=== PATIENT | male | born 1945 | race Caucasian/White ===

== ENCOUNTER 2016-11-30 07:35 | Observation (INO) ==
[2016-11-30] MEDS ORDERED: ASPIRIN CHEW 81 MG TABLET PO STA (08:05)
--- NOTE | 2016-11-30 08:13 | EKG Report ---
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
[2016-11-30] MEDS ORDERED: ASPIRIN CHEW 81 MG TABLET PO ONE ×2 (08:22)
[2016-11-30 08:24] LABS: Basophils # 0.1 10*3/uL (0.0-0.2); Basophils % 0.8 % (0.0-0.8); Eosinophils # 0.1 10*3/uL (0.0-0.87); Eosinophils % 1.1 % (0.00-10.9); Immature Granulocytes % 0.2 %; Immature Granulocytes Absolute 0.01 #; Lymphocytes # 4.6 10*3/uL (1.4-4.0); Mean Corpuscular HGB Conc 34.9 GM/DL (32-36); Mean Corpuscular Hemoglobin 31 PG (27-34); Mean Corpuscular Volume 90.1 FL (87-102); Mean Platelet Volume 10.3 FL (9.6-12.0); Monocytes # 0.5 10*3/uL (0.11-0.8); Monocytes % 7.5 % (1.7-12.7); Neutrophils # 1.3 10*3/uL (1.4-7.4); Neutrophils % 19.4 % (38.7-73.9); Platelet Count 108 T/CUMM (130-400); Red Blood Count 4.77 MC/CUMM (3.8-5.5); Red Cell Distribution Width 13.2 % (9.3-17.3); White Blood Count 6.4 T/CUMM (4-12)
--- NOTE | 2016-11-30 08:26 | XRay Report ---
XR chest 2V Date: 11/30/2016 8:05 AM History: Shortness of breath Comparison: 04/25/2015 Technique: PA and lateral chest Findings: The heart is small and compressed by the over expanded lungs. The lungs and mediastinum are stable in appearance. Prior anterior cervical fusion with degenerative changes. Prior cholecystectomy. Impression: COPD with no acute parenchymal findings. Prior anterior cervical fusion and cholecystectomy. PROCEDURE INTERPRETED AT [facility] DEPARTMENT OF RADIOLOGY Final Report Signed by: Dr. Aicha Leslie
[2016-11-30 08:49] LABS: Alanine Aminotransferase 57 U/L (16-61); Albumin 3.3 G/DL (3.4-5.0); Alkaline Phosphatase 218 U/L (45-117); Aspartate Amino Transferase 56 U/L (0-37); Blood Urea Nitrogen 20 MG/DL (7-18); Calcium 8.7 MG/DL (8.5-10.1); Glucose 197 MG/DL (74-106); Osmolality,Calculated 284.5 MOS/KG (273-304); Potassium 3.4 MMOL/L (3.5-5.1); Sodium 139 MMOL/L (136-145); Total Protein 6.6 G/DL (6.4-8.3); Troponin I Only < 0.015 NG/ML (0.00-0.045)
[2016-11-30 09:08] LABS: Band Neutrophils 3 % (0-10); Hypochromasia 1+; Lymphocytes 27 % (20-55); Microcytosis 1+; Platelet Estimate Decreased; Segmented Neutrophils 61 % (50-85); Total Cells Counted 100
--- NOTE | 2016-11-30 09:38 | CT Report ---
Exam: CT chest with contrast, PE study Date: 11/30/2016 Comparison: 04/25/2015 Reason: Chest pain, shortness of breath Technique: Axial images of the chest were obtained after administration of 100 cc of IV Omnipaque 350 intravenous contrast. Coronal reformatted images were also acquired. The study was performed per pulmonary embolism protocol. Total DLP: 1388.80. Findings: There is no evidence of pulmonary embolism through the segmental pulmonary arteries. The heart is normal in size with cardiac fat pads. Minimal coronary artery calcifications are noted. Limited contrast in the thoracic aorta which is stable in size. No chest lymphadenopathy is identified. Prior cholecystectomy. Limited evaluation of the spleen which appears larger in size. Limited evaluation of the upper abdomen on the scans. CT of the abdomen and pelvis reported separately. Degenerative changes are noted. The lungs are overexpanded with chronic scarring with minimally progressive atelectasis. No pleural effusion. Impression: No evidence of pulmonary embolism. Minimal coronary artery calcifications. Prior cholecystectomy with progressive splenomegaly. CT of abdomen and pelvis reported separately. The lungs are minimally over expanded which can be seen with COPD or possible reactive airway disease with minimally progressive atelectasis. This CT exam was performed using one or more the following dose reduction techniques: Automated exposure control, adjustment of the MA and/or KV according to patient size, or use of iterative reconstruction technique. PROCEDURE INTERPRETED AT [facility] DEPARTMENT OF RADIOLOGY Final Report Signed by: Dr. Aicha Leslie
--- NOTE | 2016-11-30 09:43 | CT Report ---
Referring physician: Fran Soto EXAM: CT abdomen and pelvis with contrast DATE: November 30, 2016 COMPARISON: CT chest PE study November 30, 2016, CT abdomen and pelvis November 22, 2012 REASON: Elevated bilirubin, upper abdominal/chest pain TECHNIQUE: Axial images of the abdomen and pelvis were obtained after administration of 100 cc of Omnipaque 350 IV contrast. Coronal and sagittal reformatted images were also provided. FINDINGS: Lower thorax: Please see the CT chest PE study performed on the same day for details. ABDOMEN: Liver: Unremarkable. Gallbladder and bile ducts: The patient is status post cholecystectomy. No biliary duct dilatation is seen. Pancreas: There is mild fat stranding at near the pancreatic tail, lower pole of the left kidney and inferomedial margin of the spleen. This was present on the previous study and may reflect scarring. However, please correlate with lipase levels to exclude acute pancreatitis. Spleen: There is splenomegaly with the spleen measuring 19 cm in AP dimension. This has developed since the previous study. Adrenals: Unremarkable. Kidneys and ureters: No hydronephrosis is present. There is probable cortical scarring at the lower pole of the left kidney, which appears stable. There is also a a probable 0.8 cm cyst at the lower pole of the left kidney and a 0.4 cm nonobstructing left renal calculus. The ureters are unremarkable as visualized. PELVIS: Bladder: The bladder is poorly distended and difficult to evaluate. Reproductive: The prostate is mildly enlarged but appears stable. The seminal vesicles are unremarkable. ABDOMEN AND PELVIS: Bowel: There is no evidence of bowel obstruction or inflammation. There is moderate stool within the colon. Appendix: The appendix is unremarkable. Vasculature: The abdominal aorta is normal in size. Peritoneum/retroperitoneum: No free air is identified. There is minimal free fluid within the pelvis. Lymph nodes: No suspicious adenopathy is seen. Abdominal/pelvic wall: There is a minimal fat-containing umbilical hernia. Bones: There is degenerative change at the spine with disc space narrowing and endplate degenerative change at L4-L5. No acute osseous process is seen. IMPRESSION: 1. Interval development of splenomegaly. 2. Minimal free fluid within the pelvis. 3. There is mild fat stranding near the pancreatic tail, lower pole of the left kidney and inferomedial margin of the spleen. This was present on the prior study and may reflect scarring. However, please correlate with lipase levels to exclude mild pancreatitis. 4. Scarring at the lower pole of the left kidney. There is also a small left renal cyst and small nonobstructing left renal calculus. The CT exam was performed using one or more of the following dose reduction techniques: Automated exposure control and adjustment of the mA and/or kV according to patient size. PROCEDURE INTERPRETED AT [facility] DEPARTMENT OF RADIOLOGY Final Report Signed by: Dr. Román Dash
--- NOTE | 2016-11-30 10:18 | Emergency Department Note ---
Александр Herrera Brooke, am scribing for, and in the presence of, Fran Soto MD 08:21. Charles Herrera Hans, MD, personally performed the services described in this documentation, ascribed by Cyndy Fountain in my presence, and it is both accurate and complete . Arrival - Arrival Chief Complaint: Chest Pain Stated Complaint: heart ED Nursing Triage Note: Pt c/o Chest pain, SOB, nausea, and right wrist/hand numbness since Saturday. Mode of Arrival: Ambulatory Limitations: No Limitations Source: Patient, RN Notes Reviewed Time Seen by Provider: 11/30/16 07:50 - History of Present Illness HPI Narrative: Patient is a 71 year old male who presents to the ED with c/o chest pain that started Saturday. He describes the pain as constant and as pressure or dull. His chest is not tender to palpation. He says the pain is not currently "bad." He denies any radiation of the pain but says his right hand, around the thumb, is numb. Patient says the numbness started this morning and he does not have a history of carpal tunnel syndrome. Patient says he has had nausea, lightheadedness, and shortness of breath. He denies having any diaphoresis. Patient says he has "went down" a lot in the past two weeks. He says he has been laying around a lot for the past "two or three days" because of the pain. He says he has not been under any extra stress. He has not eaten in the past "two or three days" and says he does not have an appetite. Patient had a pulmonary embolism in 2014 and says the symptoms that he had then, are similar to todays symptoms. 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 He says he did have some superficial clots to the right leg. Patient says the TIA happened a couple of years ago and Dr. Kraus did a full work up on him. He does not have a FHx of heart problems. He is not a smoker. Dr. Torres is his Primary Care Provider. Onset (ago): day(s) (5) Allergies/Adverse Reactions: Allergies Allergy/AdvReac Type Severity Reaction Status Date / Time No Known Allergies Allergy Unverified 04/25/15 09:26 Home Medications: Home Medications Medication Instructions Recorded Confirmed Type Metformin HCl 1,000 mg PO BID 04/25/15 11/30/16 History Omeprazole Magnesium [Prilosec Otc] 20 mg PO DAILY 04/25/15 11/30/16 History Clopidogrel [Plavix] 75 mg PO DAILY #30 tablet 04/26/15 11/30/16 Rx Alfuzosin [Uroxatral] 10 mg PO DAILY 11/30/16 11/30/16 History Naproxen [Naproxen Tab] 250 mg PO DAILY PRN 11/30/16 11/30/16 History Review of System - Review of System 12 point system: reviewed and no additional remarkable complaints except as stated - Review of System Constitutional: Present: other (no appetite). Absent: diaphoresis, fever Respiratory: Absent: respiratory distress Cardiovascular: Present: chest pain Gastrointestinal: Present: nausea Skin: Absent: rash Neurological: Present: numbness (Right hand around thumb) Medical,Surgical,& Family Hx - Medical History Endocrine: History of: Diabetes Mellitus (NIDDM) Respiratory: History of: Pulmonary Embolism (summer 2014) Renal: Comment Only: Renal Problems (removed part of kidney r/t tumor) Gastrointestinal: History of: GERD - Surgical History Thoracic Surgeries: Surgical HX of;: Kidney (Renal Surgery) (removed part of kidney r/t tumor) Abdominal Surgeries: Surgical HX of: Cholecystectomy Reproductive Surgeries: Patient denies;: Genitourinary Surgery - Family History Family History: Reports;: Family Cancer (mother) Denies;: Family Anesthesia Reaction, Family Diabetes, Family Heart Disease, Family Hypertension, Family Stroke - Social History Smoking Status: Never smoker Exam Vital Signs: Vital Signs Temperature 97.4 F L 11/30/16 07:41 Pulse Rate 96 H 11/30/16 09:00 Respiratory Rate 18 11/30/16 09:00 Blood Pressure 110/64 11/30/16 09:00 O2 Sat by Pulse Oximetry 96 11/30/16 09:00 - General General appearance: alert, in no apparent distress - Head Head exam: Present: atraumatic, normocephalic - Eye Eye exam: Present: normal appearance, PERRL, EOMI - ENT ENT exam: Present: normal exam - Neck Neck exam: Present: normal inspection - Chest Chest inspection: Present: normal inspection, symmetric chest wall rise - Respiratory Respiratory exam: Present: normal lung sounds bilaterally - Cardiovascular Cardiovascular exam: Present: regular rate, normal rhythm, normal heart sounds - Abdominal Exam Abdominal exam: Present: soft. Absent: distention, tenderness - Extremities Exam Extremities exam: Present: normal inspection - Back Exam Back exam: Present: normal inspection - Neurological Exam Neurological exam: Present: alert, oriented X3 - Psychiatric Psychiatric exam: Present: normal affect, normal mood - Skin Skin exam: Present: warm, dry, intact, normal color Course Course Narrative: This patient was evaluated in the ER and his workup was essentially negative for any acute problems but he did have some ST segment depressions in his septal leads and his troponin was negative. His CT chest PE protocol showed no PE and his CT of abdomen and pelvis showed some splenomegaly and some inflammatory changes in the tail the pancreas. His bilirubin was slightly elevated. Because of his chest pain and minimal EKG changes he was discussed with his primary care physician who agreed to admit him to telemetry to trend his cardiac enzymes to rule out coronary artery syndrome and obtain cardiology evaluation. Results - Labs CBC & BMP: 11/30/16 07:53 11/30/16 07:53 Lab Results: I have reviewed the patients labs Labs: Laboratory Tests 11/30/16 07:53 WBC 6.4 RBC 4.77 Hgb 15.0 Hct 43.0 MCV 90.1 MCH 31 MCHC 34.9 RDW 13.2 Plt Count 108 L MPV 10.3 Neut % (Auto) 19.4 L Lymph % (Auto) 71.0 H Canadian % (Auto) 7.5 Eos % (Auto) 1.1 Baso % (Auto) 0.8 Neut # (Auto) 1.3 L Lymph # (Auto) 4.6 H Canadian # (Auto) 0.5 Eos # (Auto) 0.1 Baso # (Auto) 0.1 Immature Gran % 0.2 Nucleated RBC % 0.0 Immature Gran # 0.01 Nucleated RBCs # 0.00 Laboratory Tests 11/30/16 07:53 Sodium 139 Potassium 3.4 L Chloride 103 Carbon Dioxide 26 Anion Gap 13.4 BUN 20 H Creatinine 0.90 GFR Calculation 112 BUN/Creatinine Ratio 22.00 H Glucose 197 H Calculated Osmolality 284.5 Calcium 8.7 Total Bilirubin 2.60 H AST 56 H ALT 57 Alkaline Phosphatase 218 H Total Creatine Kinase 38 L CK-MB (CK-2) < 1.0 Troponin I < 0.015 Total Protein 6.6 Albumin 3.3 L Globulin 3.3 Albumin/Globulin Ratio 1.0 L Lipase 275.0 Laboratory Tests 11/30/16 07:53 Total Counted 100 Segmented Neutrophils 61 Band Neutrophils 3 Lymphocytes 27 Monocytes 9 Platelet Estimate Decreased Hypochromasia 1+ Microcytosis 1+ - Diagnostic Findings Procedure: Chest x-ray: report reviewed by me (COPD with no acute parenchymal findings. Prior anterior cervical fusion and cholecystectomy.), CT Abdomen and Pelvis: report reviewed by me (1. Interval development of splenomegaly. 2. Minimal free fluid within the pelvis. 3. There is mild fat stranding near the pancreatic tail, lower pole of the left kidney and inferomedial margin of the spleen. This was present on the prior study and may reflect scarring. However, please correlate with lipase levels to exclude mild pancreatitis. 4. Scarring at the lower pole of the left kidney. There is also a small left renal cyst and small nonobstructing left renal calculus.), CT - chest: report reviewed by me ( No evidence of pulmonary embolism. Minimal coronary artery calcifications. Prior cholecystecomy with progressive splenomegaly. CT of abdomen and pelvis reported separately. The lungs are minimally over expanded which can be seen with COPD or possible reactive airway disease with minimally progressive atelectasis.) Disposition Clinical Impression: Chest pain Case discussed with: patient Disposition: Still a Patient Condition: Stable Instructions: Chest Pain (ED) Time of Disposition: 10:18
[2016-11-30] MEDS ORDERED: GLUCAGON 1 MG VIAL IM PRN (11:45)
[2016-11-30] MEDS ORDERED: MAGNESIUM SULF RIDER 2 GM in PREMIX 1 EACH IV PRN (11:45)
[2016-11-30] MEDS ORDERED: PROMETHAZINE 25 MG TABLET PO PRN (11:45)
[2016-11-30] MEDS ORDERED: MAGNESIUM SULF RIDER 4 GM in PREMIX 1 EACH IV PRN (11:45)
[2016-11-30] MEDS ORDERED: DEXTROSE 50% 25 GM/50 ML VIAL IV PRN (11:45)
[2016-11-30] MEDS ORDERED: ONDANSETRON 4 MG/2 ML VIAL IV PRN (11:45)
[2016-11-30] MEDS ORDERED: MORPHINE 2 MG/1 ML SYRINGE IV PRN (11:45)
--- NOTE | 2016-11-30 14:10 | Family Practice History&Phys ---
Assessment and Plan (1) Chest pain Status: Acute Assessment and plan: Patient states that he has had a significant tightness sensation in his epigastric region chest intermittently over the last 2 weeks. At times is very significant and associated with nausea no vomiting. Also had dyspnea. Patient is a significant change in his endurance now has dyspnea with minimal activity. Current Visit: Yes (2) Dyspnea with exertion Status: Acute Assessment and plan: There has been a significant change in the last 2 weeks. Patient states that he normally does a lot of physical activity in his daily schedule. Presently not able to minimal activity without dyspnea. Current Visit: Yes (3) Loss of endurance Status: Acute Assessment and plan: Patient states that he has had a significant change in his endurance. States he does a lot of physical activity on a daily basis is now only able to do minimal activity without severe weakness and dyspnea Current Visit: Yes (4) previous pulmonary embolus Status: Chronic Assessment and plan: Stable on present medications. Patient had a CT angiogram done in the room which revealed no acute changes. Current Visit: No (5) History of deep vein thrombosis Status: Chronic Assessment and plan: Stable at present Current Visit: Yes (6) Previous TIA Status: Chronic Assessment and plan: Stable on present medications Current Visit: Yes (7) type 2 diabetes mellitus Status: Chronic Assessment and plan: Stable on present medications. Will start on sliding scale Current Visit: No (8) Gastroesophageal reflux Status: Chronic Assessment and plan: Patient states she has occasional reflux symptoms but generally is stable on Prilosec daily. Denies any change in his stools. Current Visit: Yes (9) History of renal calculi Status: Chronic Assessment and plan: Stable at present Current Visit: Yes (10) Benign prostatic hypertrophy Status: Chronic Assessment and plan: Stable on present medications Current Visit: Yes History of Present Illness Chief complaint: Dyspnea with exertion and chest pain History of present illness: Mr. Joseph is a 71 year old male e: Patient is a 71 year old male who presents to the ED with c/o chest pain that started Saturday. He describes the pain as constant and as pressure or dull. His chest is not tender to palpation. He says the pain is not currently "bad." He denies any radiation of the pain but says his right hand, around the thumb, is numb. Patient says the numbness started this morning and he does not have a history of carpal tunnel syndrome. Patient says he has had nausea, lightheadedness, and shortness of breath. He denies having any diaphoresis. Patient says he has "went down" a lot in the past two weeks. He says he has been laying around a lot for the past "two or three days" because of the pain. He says he has not been under any extra stress. He has not eaten in the past "two or three days" and says he does not have an appetite. Patient had a pulmonary embolism in 2014 and says the symptoms that he had then, are similar to todays symptoms. 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 He says he did have some superficial clots to the right leg. Patient says the TIA happened a couple of years ago and Dr. Kraus did a full work up on him. He does not have a FHx of heart problems. Patient further relates that he has had a significant change in his endurance and energy in the last 2 weeks. States that he has dyspnea with minimal activity at present. 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 States he has not been able to do anything in the last several days. In view of degree of symptoms will admit for further evaluation and therapy. Home Medications Medication Instructions Recorded Confirmed Type Metformin HCl 1,000 mg PO BID 04/25/15 11/30/16 History Omeprazole Magnesium [Prilosec Otc] 20 mg PO DAILY 04/25/15 11/30/16 History Clopidogrel [Plavix] 75 mg PO DAILY #30 tablet 04/26/15 11/30/16 Rx Alfuzosin [Uroxatral] 10 mg PO DAILY 11/30/16 11/30/16 History Naproxen [Naproxen Tab] 250 mg PO DAILY PRN 11/30/16 11/30/16 History Allergies Allergy/AdvReac Type Severity Reaction Status Date / Time No Known Allergies Allergy Unverified 04/25/15 09:26 Medical,Surgical,& Family Hx - Medical History Neurology: History of: TIA Endocrine: History of: Diabetes Mellitus (NIDDM) Respiratory: History of: Pulmonary Embolism (summer 2014) Renal: Comment Only: Renal Problems (, Patient has history of previous renal calculi.) Genitourinary: History of: Prostate Problems (History of benign prostatic hypertrophy) Gastrointestinal: History of: GERD Musculoskeletal: History of: Degenerative Disk Disease Hematology: History of: Clotting Problems (Patient's had previous deep vein thrombosis and pulmonary embolus) - Surgical History Thoracic Surgeries: Surgical HX of;: Kidney (Renal Surgery) (removed part of kidney r/t tumor) Abdominal Surgeries: Surgical HX of: Cholecystectomy Reproductive Surgeries: Patient denies;: Genitourinary Surgery Orthopedic Surgeries: Surgical HX of;: Spinal Surgery (History of previous cervical fusion) - Family History Family History: Reports;: Family Cancer (mother) Denies;: Family Anesthesia Reaction, Family Diabetes, Family Heart Disease, Family Hypertension, Family Stroke - Social History Smoking Status: Never smoker Frequency of Alcohol Use: None Type of Drug Use: None Marital Status: Lives With:: Spouse Functional capacity: independent ambulation Exam - Constitutional Vitals: Period Temp Pulse Resp BP Sys/Quigley Pulse Ox Last 24 Hr 97.4 F-97.9 F 72-122 16-20 110-139/52-93 94-100 General appearance: no acute distress - Head Head exam: Present: normal inspection - ENT ENT exam: Present: normal exam - Neck Neck exam: Present: normal inspection. Absent: lymphadenopathy - Respiratory Respiratory exam: Present: clear to auscultation bilaterally - Cardiovascular Cardiovascular exam: Present: regular rate and rhythm - GI/Abdominal GI/Abdominal exam: Present: normal bowel sounds, soft - Extremities Exam Extremities exam: Present: normal inspection - Back Exam Back exam: Present: normal inspection - Neurological Exam Neurological exam: Present: alert, oriented X3 - Psychiatric Psychiatric exam: Present: normal affect, normal mood - Skin Skin exam: Present: normal color Results - Labs CBC & BMP: 11/30/16 07:53 11/30/16 07:53
[2016-11-30] MEDS: ALFUZOSIN 10 MG TABLET PO SCH (14:39)
[2016-11-30] MEDS: PANTOPRAZOLE 40 MG VIAL IV SCH (14:39)
--- NOTE | 2016-11-30 15:35 | Cardiology Consult Note ---
<Sridevi Ruiz - Last Filed: 11/30/16 16:02> Assessment and Plan - Time spent with patient Time spent with patient: Greater than 30 minutes (1) Chest pain Status: Acute Assessment and plan: SEE PLAN OF CARE LISTED BELOW. Current Visit: Yes (2) Dyspnea with exertion Status: Acute Assessment and plan: SEE PLAN OF CARE LISTED BELOW. Current Visit: Yes (3) Loss of endurance Status: Acute Assessment and plan: SEE PLAN OF CARE LISTED BELOW. Current Visit: Yes (4) Benign prostatic hypertrophy Status: Chronic Assessment and plan: SEE PLAN OF CARE LISTED BELOW. Current Visit: Yes (5) Gastroesophageal reflux Status: Chronic Assessment and plan: SEE PLAN OF CARE LISTED BELOW. Current Visit: Yes (6) History of deep vein thrombosis Status: Chronic Assessment and plan: SEE PLAN OF CARE LISTED BELOW. Current Visit: Yes (7) History of renal calculi Status: Chronic Assessment and plan: SEE PLAN OF CARE LISTED BELOW. Current Visit: Yes (8) Previous TIA Status: Chronic Assessment and plan: SEE PLAN OF CARE LISTED BELOW. Current Visit: Yes (9) previous pulmonary embolus Status: Chronic Assessment and plan: SEE PLAN OF CARE LISTED BELOW. Current Visit: No (10) type 2 diabetes mellitus Status: Chronic Assessment and plan: SEE PLAN OF CARE LISTED BELOW. Current Visit: No (11) Abdominal pain Status: Acute Assessment and plan: SEE PLAN OF CARE LISTED BELOW. Current Visit: Yes (12) Elevated bilirubin Status: Acute Assessment and plan: SEE PLAN OF CARE LISTED BELOW. Current Visit: Yes (13) Elevated AST (SGOT) Status: Acute Assessment and plan: SEE PLAN OF CARE LISTED BELOW. Current Visit: Yes (14) Hypokalemia Status: Acute Assessment and plan: SEE PLAN OF CARE LISTED BELOW. Current Visit: Yes (15) Thrombocytopenia Status: Acute Assessment and plan: SEE PLAN OF CARE LISTED BELOW. Current Visit: Yes History of Present Illness - Data of Consult Patient: new to practice Consult date: 11/30/16 Requesting Physician: Aaron Torres Primary care physician: Gianni Palma - Consult Narrative Reason for consult: Chest pain History of present illness: Put In Beat Adjuster: Patient reports that he saw Dr. williamson in the hospital 2 years ago, has never followed up in clinic. Mr. Joseph is a 71 year old male without known history of coronary artery disease , not routinely followed by cardiology. Patient presented to the emergency department with complaints of chest pain. Patient has cardiac risk factors significant for diabetes and advanced age. Patient reports that he is a lifetime non-smoker and has no family history of coronary artery disease. 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 Patient reports that he had a normal stress test in 2015. He also had an echocardiogram in 2015 which revealed ejection fraction of 60%. Grade 2 diastolic dysfunction. Pulmonary artery pressure 35-40 mmHg. Patient reports that he is normally a very active person. [place] and has multiple duties to perform daily. However, one month ago he began tiring out quicker and no longer having the energy that he used to. 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 He confirms dyspnea on exertion, easy fatigability and a significant change in his endurance. 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 This has progressively worsened over the last month. He reports associated nausea without vomiting, abdominal pain, shortness of breath, loss of appetite and lightheadedness. On Saturday, he developed midsternal chest pain. He describes his pain as a pressure or dull type pain. Nonradiating. Rates his pain a 4 out of 5. This is been consistent since Saturday afternoon, waxing and waning in intensity. Associated with shortness of breath and nausea. Denies diaphoresis. He tells me that walking or exertion has no effect on his chest discomfort. 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 However, I could not reproduce his chest pain on exam. He is unable to identify any alleviating factors. This morning, he reports having minimal chest pain. However, he felt that it was necessary to be further evaluated as his other symptoms continue to progress. He does report that his chest pain feels exactly like it did when he had a pulmonary embolism in 2014. Chest CT this admission does not reveal any evidence of pulmonary embolism. Patient has been admitted under family medicine's service and housed on the telemetry floor. Cardiology has been consulted to further evaluate patient's chest discomfort. Patient was seen and examined on the telemetry unit. He is currently is without chest pain, heaviness and tightness. EKG only reveals nonspecific ST and T-wave abnormality. Troponin has been negative 2. Total bilirubin is noted to be 2.[address] of abdomen and pelvis reveal interval development of splenomegaly, minimal free fluid within the pelvis and small left renal cyst and small nonobstructing left renal calculus. Chest CT did not reveal any evidence of pulmonary embolism. At this point, we will continue to cycle cardiac biomarkers and EKG in order to rule out myocardial infarction. Baby aspirin has been added to medication regimen. Upon admission to emergency department, he was noted to be tachycardic with heart rates of 122. I will add a low-dose beta-valeria. I will discuss with Dr. Ramos and await his further recommendations regarding the need for further cardiac workup. ASSESSMENT AND PLAN : 1. CHEST PAIN - Patient has atypical chest pain without exertional component. Troponin has been negative 2 and EKG reveals nonspecific [address] and T-wave abnormality. Patient had a normal cardiac stress test approximately 2 years ago. I do not feel that this is ACS due to the fact that patient has normal cardiac biomarkers with ongoing chest discomfort since Saturday. At this point, I will add baby aspirin and continue to cycle cardiac biomarkers and EKG. I will discuss with Dr. Ramos and await his further recommendations regarding the need for further cardiac workup. Lipid panel has been added to a.m. labs. 2. DYSPNEA ON EXERTION - Patient reports dyspnea on exertion for the past 1 month. We will order an echocardiogram. These results will be reviewed and further recommendations will be made at that time. Certainly, this could be secondary to underlying coronary artery disease. At this time, we will continue to cycle cardiac biomarkers and EKGs in order to rule out myocardial infarction. Will discuss with Dr. Ramos and await his further recommendations regarding need for further cardiac workup. 3. LOSS OF ENDURANCE - TSH was checked which was within normal limits. Will order echocardiogram. 4. ELEVATED BILIRUBIN - Defer further workup of this to attending. GI consultation may need to be considered. 5. ELEVATED AST - Defer workup of this to attending. GI consultation may be considered. 6. HYPOKALEMIA - Potassium replacement protocol. 7. THROMBOCYTOPENIA - Defer further workup of this to attending. Monitor with daily CBC. 8. DIABETES - Defer management of this to attending. 9. HISTORY OF PE - Continue Plavix. Chest CT was not suggestive of acute pulmonary embolism. 10. HISTORY OF TIA - Stable at present. Continue Plavix. 11. GERD - Continue PPI. Patient reports that his GERD is well controlled with Prilosec at home. 12. HISTORY OF RENAL CALCULI - Stable at present. Continue current plan of care. 13. BPH - Stable at present. Continue current plan of care. 14. HISTORY OF DVT - Stable at present. Continue current plan of care. 15. SINUS TACHYCARDIA - Upon arrival to the emergency department, patient was noted to be in sinus tachycardia with heart rates in the 120s. I will add low- dose beta-valeria at this time as this may be contributing to some of patient's symptomology. CC: Aaron Torres, DO - Home Medications and Allergies Home Medications: Home Medications Medication Instructions Recorded Confirmed Type Metformin HCl 1,000 mg PO BID 04/25/15 11/30/16 History Omeprazole Magnesium [Prilosec Otc] 20 mg PO DAILY 04/25/15 11/30/16 History Clopidogrel [Plavix] 75 mg PO DAILY #30 tablet 04/26/15 11/30/16 Rx Alfuzosin [Uroxatral] 10 mg PO DAILY 11/30/16 11/30/16 History Naproxen [Naproxen Tab] 250 mg PO DAILY PRN 11/30/16 11/30/16 History Allergies/Adverse Reactions: Allergies Allergy/AdvReac Type Severity Reaction Status Date / Time No Known Allergies Allergy Unverified 04/25/15 09:26 - Constitutional Constitutional: Present: fatigue, lethargy, malaise, weakness, other (Loss of appetite). Absent: chills, fever(s), frequent falls - Cardiovascular Cardiovascular: Present: as per HPI, chest pain at rest, dyspnea, dyspnea on exertion, lightheadedness. Absent: claudication, diaphoresis, edema, radiating jaw, neck or arm pain, orthopnea, palpitations, PND - Respiratory Respiratory: Present: dyspnea, dyspnea on exertion. Absent: cough, hemoptysis, wheezing, snoring, pain on inspiration, change in phlegm color - Gastrointestinal Gastrointestinal: Present: abdominal pain, bloating, cramping, early satiety, nausea. Absent: constipation, hematemesis, hematochezia, loose stools, melena, vomiting - Genitourinary Genitourinary: Present: flank pain - Neurological Neurological: Present: dizziness, numbness (Right thumb). Absent: abnormal gait , abnormal speech, behavioral changes, frequent falls, headache(s), syncope Medical,Surgical,& Family Hx - Medical History Neurology: History of: TIA Endocrine: History of: Diabetes Mellitus (NIDDM) Respiratory: History of: Pulmonary Embolism (summer 2014) Renal: Comment Only: Renal Problems (, Patient has history of previous renal calculi.) Genitourinary: History of: Prostate Problems (History of benign prostatic hypertrophy) Gastrointestinal: History of: GERD Musculoskeletal: History of: Degenerative Disk Disease Hematology: History of: Clotting Problems (DVT and PE) - Surgical History Thoracic Surgeries: Surgical HX of;: Kidney (Renal Surgery) (removed part of kidney r/t tumor) Abdominal Surgeries: Surgical HX of: Cholecystectomy Reproductive Surgeries: Patient denies;: Genitourinary Surgery Orthopedic Surgeries: Surgical HX of;: Spinal Surgery (History of previous cervical fusion) - Family History Family History: Reports;: Family Cancer (mother) Denies;: Family Anesthesia Reaction, Family Diabetes, Family Heart Disease, Family Hypertension, Family Stroke - Social History Smoking Status: Never smoker Have you smoked in the last 12 months: No Frequency of Alcohol Use: None Type of Drug Use: None Marital Status: Lives With:: Spouse Functional capacity: independent ambulation Physical Examination Vital Signs Temp Pulse Resp BP Pulse Ox 97.4 F L 122 H 20 129/93 98 11/30/16 07:41 11/30/16 07:41 11/30/16 07:41 11/30/16 07:41 11/30/16 07:41 Other: General: Appears well with no apparent distress. Pleasant and cooperative. Appears comfortable. HEENT: PERRL, normocephalic, atraumatic. Mucous membranes moist. No jaundice noted. Conjunctiva moist and clear, sclerae anicteric Neck: No JVD/HJR, no thyromegaly or lymphadenopathy noted. No carotid bruit appreciated Cardiac: Regular rate and rhythm. Lungs: Clear to auscultation without accessory muscle use to assist the respiratory pattern. Not requiring oxygen. Abdomen: Soft, bowel sounds normoactive. Nontender and nondistended. Extremities: No clubbing, cyanosis noted. No edema noted. Upper extremity pulses 2+. Lower extremity pulses 2+. Capillary refill less than 3 seconds. Skin: No unusual lesions or rashes. No skin breakdown appreciated. Neuro: Awake, alert and oriented 3. Moves all extremities well without hemiparesis or paralysis. No essential tremor is appreciated. Result/EKG - Labs CBC & BMP: 11/30/16 07:53 11/30/16 07:53 Lab Results: I have reviewed the past 24 hour labs Labs: Laboratory Results - last 24 hr 11/30/16 11/30/16 11/30/16 07:53 07:53 07:53 WBC 6.4 RBC 4.77 Hgb 15.0 Hct 43.0 MCV 90.1 MCH 31 MCHC 34.9 RDW 13.2 Plt Count 108 L MPV 10.3 Neut % (Auto) 19.4 L Lymph % (Auto) 71.0 H [place] % (Auto) 7.5 Eos % (Auto) 1.1 Baso % (Auto) 0.8 Neut # (Auto) 1.3 L Lymph # (Auto) 4.6 H [place] # (Auto) 0.5 Eos # (Auto) 0.1 Baso # (Auto) 0.1 Total Counted 100 Immature Gran % 0.2 Nucleated RBC % 0.0 Immature Gran # 0.01 Segmented Neutrophils 61 Band Neutrophils 3 Lymphocytes 27 Monocytes 9 Nucleated RBCs # 0.00 Platelet Estimate Decreased Hypochromasia 1+ Microcytosis 1+ Sodium 139 Potassium 3.4 L Chloride 103 Carbon Dioxide 26 Anion Gap 13.4 BUN 20 H Creatinine 0.90 GFR Calculation 112 BUN/Creatinine Ratio 22.00 H Glucose 197 H Calculated Osmolality 284.5 Calcium 8.7 Total Bilirubin 2.60 H AST 56 H ALT 57 Alkaline Phosphatase 218 H Total Creatine Kinase 38 L CK-MB (CK-2) < 1.0 Troponin I < 0.015 Total Protein 6.6 Albumin 3.3 L Globulin 3.3 Albumin/Globulin Ratio 1.0 L Amylase 26 Lipase 275.0 11/30/16 12:22 WBC RBC Hgb Hct MCV MCH MCHC RDW Plt Count MPV Neut % (Auto) Lymph % (Auto) [place] % (Auto) Eos % (Auto) Baso % (Auto) Neut # (Auto) Lymph # (Auto) [place] # (Auto) Eos # (Auto) Baso # (Auto) Total Counted Immature Gran % Nucleated RBC % Immature Gran # Segmented Neutrophils Band Neutrophils Lymphocytes Monocytes Nucleated RBCs # Platelet Estimate Hypochromasia Microcytosis Sodium Potassium Chloride Carbon Dioxide Anion Gap BUN Creatinine GFR Calculation BUN/Creatinine Ratio Glucose Calculated Osmolality Calcium Total Bilirubin AST ALT Alkaline Phosphatase Total Creatine Kinase CK-MB (CK-2) Troponin I < 0.015 Total Protein Albumin Globulin Albumin/Globulin Ratio Amylase Lipase Specialty Discharge - Follow Up or Referrals <Faustino Ramos - Last Filed: 11/30/16 17:00> History of Present Illness - Consult Narrative History of present illness: Mr. Joseph is a 71 year old male CC: Aaron Torres, DO Physical Examination Vital Signs Temp Pulse Resp BP Pulse Ox 97.4 F L 122 H 20 129/93 98 11/30/16 07:41 11/30/16 07:41 11/30/16 07:41 11/30/16 07:41 11/30/16 07:41 Result/EKG - Labs CBC & BMP: 11/30/16 07:53 11/30/16 07:53 Labs: Laboratory Results - last 24 hr 11/30/16 11/30/16 11/30/16 07:53 07:53 07:53 WBC 6.4 RBC 4.77 Hgb 15.0 Hct 43.0 MCV 90.1 MCH 31 MCHC 34.9 RDW 13.2 Plt Count 108 L MPV 10.3 Neut % (Auto) 19.4 L Lymph % (Auto) 71.0 H [place] % (Auto) 7.5 Eos % (Auto) 1.1 Baso % (Auto) 0.8 Neut # (Auto) 1.3 L Lymph # (Auto) 4.6 H [place] # (Auto) 0.5 Eos # (Auto) 0.1 Baso # (Auto) 0.1 Total Counted 100 Immature Gran % 0.2 Nucleated RBC % 0.0 Immature Gran # 0.01 Segmented Neutrophils 61 Band Neutrophils 3 Lymphocytes 27 Monocytes 9 Nucleated RBCs # 0.00 Platelet Estimate Decreased Hypochromasia 1+ Microcytosis 1+ Sodium 139 Potassium 3.4 L Chloride 103 Carbon Dioxide 26 Anion Gap 13.4 BUN 20 H Creatinine 0.90 GFR Calculation 112 BUN/Creatinine Ratio 22.00 H Glucose 197 H Calculated Osmolality 284.5 Calcium 8.7 Total Bilirubin 2.60 H Direct Bilirubin Indirect Bilirubin AST 56 H ALT 57 Alkaline Phosphatase 218 H Total Creatine Kinase 38 L CK-MB (CK-2) < 1.0 Troponin I < 0.015 Total Protein 6.6 Albumin 3.3 L Globulin 3.3 Albumin/Globulin Ratio 1.0 L Amylase 26 Lipase 275.0 11/30/16 11/30/16 12:22 12:22 WBC RBC Hgb Hct MCV MCH MCHC RDW Plt Count MPV Neut % (Auto) Lymph % (Auto) [place] % (Auto) Eos % (Auto) Baso % (Auto) Neut # (Auto) Lymph # (Auto) [place] # (Auto) Eos # (Auto) Baso # (Auto) Total Counted Immature Gran % Nucleated RBC % Immature Gran # Segmented Neutrophils Band Neutrophils Lymphocytes Monocytes Nucleated RBCs # Platelet Estimate Hypochromasia Microcytosis Sodium Potassium Chloride Carbon Dioxide Anion Gap BUN Creatinine GFR Calculation BUN/Creatinine Ratio Glucose Calculated Osmolality Calcium Total Bilirubin 2.40 H Direct Bilirubin 1.60 H Indirect Bilirubin 0.8 AST 52 H ALT 56 Alkaline Phosphatase 225 H Total Creatine Kinase CK-MB (CK-2) Troponin I < 0.015 Total Protein 6.2 L Albumin 3.3 L Globulin Albumin/Globulin Ratio Amylase Lipase
[2016-11-30] MEDS: POTASSIUM CHLORIDE 8 MEQ CAPSULE PO SCH ×2 (16:13→21:41)
[2016-11-30 16:20] LABS: Albumin 3.3 G/DL (3.4-5.0); Bilirubin,Direct 1.6 MG/DL (0.0-0.20); Bilirubin,Indirect 0.8 MG/DL (0.0-1.0); Bilirubin,Total 2.4 MG/DL (0.2-1.0); Total Protein 6.2 G/DL (6.4-8.3)
[2016-11-30 17:12] LABS: Hepatitis A Ab IgM Quant 0.09 Index; Hepatitis A Ab IgM Result Negative (Negative); Hepatitis B Core IgM Result Negative (Negative); Hepatitis B Surface Ag Quant < 0.10 Index; Hepatitis B Surface Ag Result Negative (Negative); Hepatitis C Virus Ab Quant 0.04 Index; Hepatitis C Virus Ab Result Negative (Negative)
--- NOTE | 2016-11-30 17:40 | ECHO Report ---
Uriah Joseph 11/30/2016 Exam Date: 15:57 Referring Physician: Sarah Reese Technologist: CARLOZ Age: 71 Ht (in): 74 Wt (lb): 209 MExam Location: [facility] Gender: Echo [id number]: Chest pain, unspecified, Weakness, Indications:Other fatigue, Dyspnea, unspecified, GERD, NIDDM, HX DVT, HX TIA, Thrombocytopenia, Previous pulmonary emboli BP: 114 / 52 HR: SinusRhythm: Technical Quality: IMPRESSIONS Technically adequate study Normal chamber sizes Normal LV systolic function with ejection fraction estimated 60% without obvious segmental wall motion abnormality Trace to 1+ tricuspid regurgitation with RVSP 36 mmHg plus RAP MEASUREMENTS (Male / Female) Normal Values 2D ECHO LV Diastolic Diameter PLAX 3.9 cm 4.2 - 5.9 / 3.9 - 5.3 cm LV Systolic Diameter PLAX 2.6 cm LV Fractional Shortening PLAX 33.2 % IVS Diastolic Thickness 1.0 cm 0.6 - 1.0 / 0.6 - 0.9 cm LVPW Diastolic Thickness 1.0 cm 0.6 - 1.0 / 0.6 - 0.9 cm RV Internal Dim ED PLAX 3.7 cm Aortic Root Diameter 3.5 cm LA Systolic Diameter LX 3.9 cm 3.0 - 4.0 / 2.7 - 3.8 cm DOPPLER TR Peak Velocity 300.0 cm/s TR Peak Gradient 36.0 mmHg FINDINGS Left Ventricle Normal left ventricular cavity size. Normal left ventricular wall thickness. Left ventricular ejection fraction is estimated at 55-60 %. Right Ventricle The right ventricle is normal in size and function. Right Atrium The right atrium is normal in size. Left Atrium The left atrium is normal in size. Mitral Valve Morphologically normal mitral valve. Trace mitral valve regurgitation. Aortic Valve Morphologically normal aortic valve without significant sclerosis or stenosis. There is no aortic regurgitation. Tricuspid Valve Morphologically normal tricuspid valve. Trace tricuspid valve regurgitation. Tricuspid regurgitation velocities suggest a PAP of 46 mmHg. Pulmonic Valve Morphologically normal pulmonic valve. Trace pulmonary valve regurgitation. Pericardium Normal pericardium without effusion. Aorta Normal ascending aorta dimension. Faustino Ramos (Electronically Signed) 30 November 2016 Final Date: 17:39
[2016-11-30] MEDS: INSULIN LISPRO 100 UNIT/ML SUBCUT SCH ×2 (19:39→21:41)
[2016-11-30] MEDS: CARVEDILOL 3.125 MG TABLET PO SCH (21:41)
[2016-11-30] MEDS: POTASSIUM CHLORIDE 20 MEQ TABLET PO PRN ×2 (21:44→23:32)
[2016-11-30 22:10] LABS: Troponin I Only < 0.015 NG/ML (0.00-0.045)
[2016-12-01 05:02] LABS: Basophils # 0.1 10*3/uL (0.0-0.2); Basophils % 1.1 % (0.0-0.8); Eosinophils # 0.1 10*3/uL (0.0-0.87); Eosinophils % 1.5 % (0.00-10.9); Hemoglobin 14.5 GM/DL (14.0-18.0); Immature Granulocytes % 0.2 %; Immature Granulocytes Absolute 0.01 #; Lymphocytes # 4.7 10*3/uL (1.4-4.0); Lymphocytes % 71.9 % (21.2-54.2); Mean Corpuscular HGB Conc 34.5 GM/DL (32-36); Mean Corpuscular Hemoglobin 31 PG (27-34); Mean Corpuscular Volume 90.9 FL (87-102); Mean Platelet Volume 10.1 FL (9.6-12.0); Monocytes # 0.5 10*3/uL (0.11-0.8); Monocytes % 7.4 % (1.7-12.7); Neutrophils # 1.2 10*3/uL (1.4-7.4); Neutrophils % 17.9 % (38.7-73.9); Platelet Count 100 T/CUMM (130-400); Red Blood Count 4.62 MC/CUMM (3.8-5.5); Red Cell Distribution Width 13.2 % (9.3-17.3); White Blood Count 6.6 T/CUMM (4-12)
[2016-12-01 05:36] LABS: Magnesium 1.8 MG/DL (1.8-2.4); Osmolality,Calculated 285.3 MOS/KG (273-304); Potassium 4.3 MMOL/L (3.5-5.1)
[2016-12-01 05:43] LABS: Troponin I Only < 0.015 NG/ML (0.00-0.045)
[2016-12-01 05:47] LABS: Albumin 2.9 G/DL (3.4-5.0); Bilirubin,Total 2.2 MG/DL (0.2-1.0); Free T4 (Free Thyroxine) 1.52 NG/DL (0.76-1.46); Magnesium 1.7 MG/DL (1.8-2.4); Osmolality,Calculated 281.5 MOS/KG (273-304); Potassium 4.2 MMOL/L (3.5-5.1); Risk Ratio 6.85; Thyroid Stimulating Hormone 3.65 uIU/ml (0.358-3.74); Total Protein 5.9 G/DL (6.4-8.3); VLDL CHOLESTEROL 41.4 MG/DL
[2016-12-01 05:52] LABS: Band Neutrophils 1 % (0-10); Eosinophils 2 % (0-10); Lymphocytes 45 % (20-55); Segmented Neutrophils 42 % (50-85)
[2016-12-01 05:55] LABS: Platelet Estimate Adequate
[2016-12-01 05:56] LABS: Total Cells Counted 100
[2016-12-01 07:02] LABS: Sedimentation Rate-Westergren 5 MM/HR (0-20)
[2016-12-01 07:04] LABS: Amorphous Crystals,Urine Moderate /HPF (Few); Apearance,Urine CLOUDY (Clear); Bacteria,Urine Occasional /HPF (Few); Bilirubin,Urine Small mg/dL (Negative); Blood, Urine Negative (Negative); Calcium Oxalate Crystals,Urine Occasional /HPF (Few); Glucose,Urine (UA) 50 mg/dL (Negative); Ketones,Urine Negative (Negative); Mucus,Urine Moderate /LPF (Occasional); Nitrite,Urine Negative (Negative); Protein,Urine 30 MG/DL; RBC,Urine 2 /HPF (0-4); Squamous Epithelial Cell,Urine Occasional /HPF (0-10); Urine Color Amber (Yellow); Urine Specific Gravity 1.042 (1.001-1.035); WBC,Urine 2 /HPF (0-6)
[2016-12-01] MEDS: INSULIN LISPRO 100 UNIT/ML SUBCUT SCH ×2 (08:40→12:06)
[2016-12-01] MEDS: POTASSIUM CHLORIDE 8 MEQ CAPSULE PO SCH (08:40)
[2016-12-01] MEDS: PANTOPRAZOLE 40 MG VIAL IV SCH (08:40)
[2016-12-01] MEDS: CARVEDILOL 3.125 MG TABLET PO SCH (08:40)
[2016-12-01] MEDS: ALFUZOSIN 10 MG TABLET PO SCH (08:40)
[2016-12-01] MEDS ORDERED: ASPIRIN EC 81 MG TABLET PO SCH (09:00)
[2016-12-01] MEDS ORDERED: CLOPIDOGREL 75 MG TABLET PO SCH (09:00)
--- NOTE | 2016-12-01 09:08 | EKG Report ---
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
[2016-12-01 11:15] LABS: Troponin I Only < 0.015 NG/ML (0.00-0.045)
[2016-12-01 11:55] VITALS: BP 124/69
--- NOTE | 2016-12-01 12:33 | Discharge Summary ---
Hospital Course - Hospital Course Hospital Course: 71 y/o male that presented to the ED yesterday with complaints of chest pain that started four days prior. He denied chest pain radioation and said the pain was constatnt. He also complained of not feeling well for the past two weeks before admission. He stated that he had to sit down often during his regular day. He initially complained of some lightheadedness and sob but denies that today. He states today that he thinks that some of his pain is from a "plate" that he has in his shoulders from years ago. It is also noted that patient has a hx NEGRITA and does not use his apnea machine. Subsequent testing reveals no evidence of Pulmonary embolism which is in patients remote hx. Patient at this time says he feels a lot better and wants to return home today. He denies any chest tightness or epigastric pain at this time and the Cardiology eval reflects a non Acute coronary syndrome and negative enzymes. It is noted that he had enlarged spleen on CT. 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 No hx of heart disease but he is followed per Dr Kraus secondary to TIA in past. He is alert and denies complaints today and wishes to go home, therefore, we will discharge him and have him follow up with [facility] in one week. We will resume his home meds and add the Carvedilol started and Baby aspirin. Specialty Discharge - Follow Up or Referrals Discharge Plan - Discharge Data Disposition: Disch To Home/Self Care Condition at Discharge: Stable Discharge Diet: diabetic diet, heart healthy Activity: increase activity as tolerated (Avoid strenuous activity a few days) Hygiene: no restrictions Weight Bearing at Discharge: weight bear as tolerated Driving: no restrictions Contact your physician if you experience:: fever over 101, Difficulty voiding, Shortness of breath - Discharge Medications New Carvedilol [Coreg] 3.125 mg PO BID #60 tablet Aspirin EC Tab 81 mg PO DAILY tablet Continue Metformin HCl 1,000 mg PO BID Omeprazole Magnesium [Prilosec Otc] 20 mg PO DAILY Clopidogrel [Plavix] 75 mg PO DAILY #30 tablet Alfuzosin [Uroxatral] 10 mg PO DAILY Naproxen [Naproxen Tab] 250 mg PO DAILY PRN PRN Reason: Pain - Follow Up or Referral Follow Up: Aaron Torres DO [Primary Care Provider] - 1 Week Kenneth Kraus MD [Physician] - 1 Week (patient started on Carvedilol in hospital) - Forms/Instructions Instructions: Chest Pain (ED) Exam - Constitutional Vitals: Period Temp Pulse Resp BP Sys/Quigley Pulse Ox Last 24 Hr 97.0 F-99.6 F 66-81 18-20 116-140/66-74 92-98 Discharge Results Procedures and tests throughout hospitalization: Pending Orders 11/30/16 14:05 Occult Blood, Stool Stat 12/02/16 04:00 BMP w/ Mg [Basic Metabolic Panel w/Mg] IN AM CBC [Comp Blood Count Auto Diff] IN AM 12/03/16 04:00 BMP w/ Mg [Basic Metabolic Panel w/Mg] IN AM CBC [Comp Blood Count Auto Diff] IN AM Labs on day of discharge: Labs from last 24 hours 12/01/16 12/01/16 12/01/16 11:32 10:35 07:36 WBC RBC Hgb Hct MCV MCH MCHC RDW Plt Count MPV Neut % (Auto) Lymph % (Auto) [place] % (Auto) Eos % (Auto) Baso % (Auto) Neut # (Auto) Lymph # (Auto) [place] # (Auto) Eos # (Auto) Baso # (Auto) Total Counted Immature Gran % Nucleated RBC % Immature Gran # Segmented Neutrophils Band Neutrophils Lymphocytes Monocytes Eosinophils Basophils Nucleated RBCs # Platelet Estimate ESR W[place] Sodium Potassium Chloride Carbon Dioxide Anion Gap BUN Creatinine GFR Calculation BUN/Creatinine Ratio Glucose POC Glucose 191 H 160 H Hemoglobin A1c Calculated Osmolality Calcium Magnesium Total Bilirubin Direct Bilirubin Indirect Bilirubin AST ALT Alkaline Phosphatase Total Creatine Kinase 31 L CK-MB (CK-2) < 1.0 Troponin I < 0.015 C-Reactive Protein Total Protein Albumin Globulin Albumin/Globulin Ratio Triglycerides Cholesterol LDL Cholesterol VLDL Cholesterol HDL Cholesterol Heart Disease Risk Ratio Amylase Lipase Free T4 TSH 3rd Generation Urine Color Urine Appearance Urine pH Ur Specific [place] Urine Protein Urine Glucose (UA) Urine Ketones Urine Blood Urine Nitrate Urine Bilirubin Urine Urobilinogen Urine Leukocytes Urine RBC Urine WBC Ur Squamous Epith Cells Calcium Oxalate Crystal Amorphous Crystals Urine Bacteria Urine Mucus Ur Culture Indicated? Hepatitis A IgM Ab Hep Bs Antigen Hep B Core IgM Ab Hepatitis C Antibody 12/01/16 12/01/16 12/01/16 05:00 04:14 04:14 WBC RBC Hgb Hct MCV MCH MCHC RDW Plt Count MPV Neut % (Auto) Lymph % (Auto) [place] % (Auto) Eos % (Auto) Baso % (Auto) Neut # (Auto) Lymph # (Auto) [place] # (Auto) Eos # (Auto) Baso # (Auto) Total Counted Immature Gran % Nucleated RBC % Immature Gran # Segmented Neutrophils Band Neutrophils Lymphocytes Monocytes Eosinophils Basophils Nucleated RBCs # Platelet Estimate ESR W[place]gren Sodium 141 Potassium 4.3 Chloride 105 Carbon Dioxide 28 Anion Gap 12.3 BUN 20 H Creatinine 0.70 GFR Calculation 123 BUN/Creatinine Ratio 28.00 H Glucose 129 H POC Glucose Hemoglobin A1c Calculated Osmolality 285.3 Calcium 8.0 L Magnesium 1.8 Total Bilirubin Direct Bilirubin Indirect Bilirubin AST ALT Alkaline Phosphatase Total Creatine Kinase 31 L CK-MB (CK-2) < 1.0 Troponin I < 0.015 C-Reactive Protein Total Protein Albumin Globulin Albumin/Globulin Ratio Triglycerides Cholesterol LDL Cholesterol VLDL Cholesterol HDL Cholesterol Heart Disease Risk Ratio Amylase Lipase Free T4 TSH 3rd Generation Urine Color [place] Urine Appearance Cloudy Urine pH 5.0 Ur Specific [place] 1.042 H Urine Protein 30 Urine Glucose (UA) 50 Urine Ketones Negative Urine Blood Negative Urine Nitrate Negative Urine Bilirubin Small H Urine Urobilinogen 4.0 H Urine Leukocytes Negative Urine RBC 2 Urine WBC 2 Ur Squamous Epith Cells Occasional Calcium Oxalate Crystal Occasional Amorphous Crystals Moderate Urine Bacteria Occasional Urine Mucus Moderate Ur Culture Indicated? Not indicated Hepatitis A IgM Ab Hep Bs Antigen Hep B Core IgM Ab Hepatitis C Antibody 12/01/16 12/01/16 12/01/16 04:14 04:14 04:14 WBC 6.6 RBC 4.62 Hgb 14.5 Hct 42.0 MCV 90.9 MCH 31 MCHC 34.5 RDW 13.2 Plt Count 100 L MPV 10.1 Neut % (Auto) 17.9 L Lymph % (Auto) 71.9 H [place] % (Auto) 7.4 Eos % (Auto) 1.5 Baso % (Auto) 1.1 H Neut # (Auto) 1.2 L Lymph # (Auto) 4.7 H [place] # (Auto) 0.5 Eos # (Auto) 0.1 Baso # (Auto) 0.1 Total Counted 100 Immature Gran % 0.2 Nucleated RBC % 0.0 Immature Gran # 0.01 Segmented Neutrophils 42 L Band Neutrophils 1 Lymphocytes 45 Monocytes 9 Eosinophils 2 Basophils 1.0 H Nucleated RBCs # 0.00 Platelet Estimate Adequate ESR [place] 5 Sodium 139 Potassium 4.2 Chloride 104 Carbon Dioxide 27 Anion Gap 12.2 BUN 22 H Creatinine 0.80 GFR Calculation 117 BUN/Creatinine Ratio 27.00 H Glucose 127 H POC Glucose Hemoglobin A1c 6.9 H Calculated Osmolality 281.5 Calcium 8.0 L Magnesium 1.7 L Total Bilirubin 2.20 H Direct Bilirubin Indirect Bilirubin AST 49 H ALT 53 Alkaline Phosphatase 208 H Total Creatine Kinase CK-MB (CK-2) Troponin I C-Reactive Protein 1.25 H Total Protein 5.9 L Albumin 2.9 L Globulin 3.0 Albumin/Globulin Ratio 0.9 L Triglycerides 207 H Cholesterol 137 LDL Cholesterol 90.0 VLDL Cholesterol 41.4 HDL Cholesterol 20 L Heart Disease Risk Ratio 6.85 Amylase Lipase 344.0 D Free T4 1.52 H TSH 3rd Generation 3.650 Urine Color Urine Appearance Urine pH Ur Specific [place] Urine Protein Urine Glucose (UA) Urine Ketones Urine Blood Urine Nitrate Urine Bilirubin Urine Urobilinogen Urine Leukocytes Urine RBC Urine WBC Ur Squamous Epith Cells Calcium Oxalate Crystal Amorphous Crystals Urine Bacteria Urine Mucus Ur Culture Indicated? Hepatitis A IgM Ab Hep Bs Antigen Hep B Core IgM Ab Hepatitis C Antibody 11/30/16 11/30/16 11/30/16 21:28 19:18 16:17 WBC RBC Hgb Hct MCV MCH MCHC RDW Plt Count MPV Neut % (Auto) Lymph % (Auto) [place] % (Auto) Eos % (Auto) Baso % (Auto) Neut # (Auto) Lymph # (Auto) [place] # (Auto) Eos # (Auto) Baso # (Auto) Total Counted Immature Gran % Nucleated RBC % Immature Gran # Segmented Neutrophils Band Neutrophils Lymphocytes Monocytes Eosinophils Basophils Nucleated RBCs # Platelet Estimate ESR [place] Sodium Potassium Chloride Carbon Dioxide Anion Gap BUN Creatinine GFR Calculation BUN/Creatinine Ratio Glucose POC Glucose 174 H 190 H Hemoglobin A1c Calculated Osmolality Calcium Magnesium Total Bilirubin Direct Bilirubin Indirect Bilirubin AST ALT Alkaline Phosphatase Total Creatine Kinase 34 L CK-MB (CK-2) < 1.0 Troponin I < 0.015 C-Reactive Protein Total Protein Albumin Globulin Albumin/Globulin Ratio Triglycerides Cholesterol LDL Cholesterol VLDL Cholesterol HDL Cholesterol Heart Disease Risk Ratio Amylase Lipase Free T4 TSH 3rd Generation Urine Color Urine Appearance Urine pH Ur Specific [place] Urine Protein Urine Glucose (UA) Urine Ketones Urine Blood Urine Nitrate Urine Bilirubin Urine Urobilinogen Urine Leukocytes Urine RBC Urine WBC Ur Squamous Epith Cells Calcium Oxalate Crystal Amorphous Crystals Urine Bacteria Urine Mucus Ur Culture Indicated? Hepatitis A IgM Ab Hep Bs Antigen Hep B Core IgM Ab Hepatitis C Antibody 11/30/16 11/30/16 11/30/16 12:22 12:22 12:22 WBC RBC Hgb Hct MCV MCH MCHC RDW Plt Count MPV Neut % (Auto) Lymph % (Auto) [place] % (Auto) Eos % (Auto) Baso % (Auto) Neut # (Auto) Lymph # (Auto) [place] # (Auto) Eos # (Auto) Baso # (Auto) Total Counted Immature Gran % Nucleated RBC % Immature Gran # Segmented Neutrophils Band Neutrophils Lymphocytes Monocytes Eosinophils Basophils Nucleated RBCs # Platelet Estimate ESR W[place]gren Sodium Potassium Chloride Carbon Dioxide Anion Gap BUN Creatinine GFR Calculation BUN/Creatinine Ratio Glucose POC Glucose Hemoglobin A1c Calculated Osmolality Calcium Magnesium Total Bilirubin 2.40 H Direct Bilirubin 1.60 H Indirect Bilirubin 0.8 AST 52 H ALT 56 Alkaline Phosphatase 225 H Total Creatine Kinase CK-MB (CK-2) Troponin I < 0.015 C-Reactive Protein Total Protein 6.2 L Albumin 3.3 L Globulin Albumin/Globulin Ratio Triglycerides Cholesterol LDL Cholesterol VLDL Cholesterol HDL Cholesterol Heart Disease Risk Ratio Amylase Lipase Free T4 TSH 3rd Generation Urine Color Urine Appearance Urine pH Ur Specific [place] Urine Protein Urine Glucose (UA) Urine Ketones Urine Blood Urine Nitrate Urine Bilirubin Urine Urobilinogen Urine Leukocytes Urine RBC Urine WBC Ur Squamous Epith Cells Calcium Oxalate Crystal Amorphous Crystals Urine Bacteria Urine Mucus Ur Culture Indicated? Hepatitis A IgM Ab Negative Hep Bs Antigen Negative Hep B Core IgM Ab Negative Hepatitis C Antibody Negative 11/30/16 07:53 WBC RBC Hgb Hct MCV MCH MCHC RDW Plt Count MPV Neut % (Auto) Lymph % (Auto) [place] % (Auto) Eos % (Auto) Baso % (Auto) Neut # (Auto) Lymph # (Auto) [place] # (Auto) Eos # (Auto) Baso # (Auto) Total Counted Immature Gran % Nucleated RBC % Immature Gran # Segmented Neutrophils Band Neutrophils Lymphocytes Monocytes Eosinophils Basophils Nucleated RBCs # Platelet Estimate ESR [place] Sodium Potassium Chloride Carbon Dioxide Anion Gap BUN Creatinine GFR Calculation BUN/Creatinine Ratio Glucose POC Glucose Hemoglobin A1c Calculated Osmolality Calcium Magnesium Total Bilirubin Direct Bilirubin Indirect Bilirubin AST ALT Alkaline Phosphatase Total Creatine Kinase CK-MB (CK-2) Troponin I C-Reactive Protein Total Protein Albumin Globulin Albumin/Globulin Ratio Triglycerides Cholesterol LDL Cholesterol VLDL Cholesterol HDL Cholesterol Heart Disease Risk Ratio Amylase 26 Lipase Free T4 TSH 3rd Generation Urine Color Urine Appearance Urine pH Ur Specific [place] Urine Protein Urine Glucose (UA) Urine Ketones Urine Blood Urine Nitrate Urine Bilirubin Urine Urobilinogen Urine Leukocytes Urine RBC Urine WBC Ur Squamous Epith Cells Calcium Oxalate Crystal Amorphous Crystals Urine Bacteria Urine Mucus Ur Culture Indicated? Hepatitis A IgM Ab Hep Bs Antigen Hep B Core IgM Ab Hepatitis C Antibody DS: Provider Date of admission: 11/30/16 10:14 Primary care physician: Aaron Torres DO Attending physician on admission: Aaron Torres DO Consults: 11/30/16 11:45 Consult to Physician [CONS] Routine Comment: Consulting Provider: When should Consulting Provider be notified: Now Consult to Specialist Group: Cardiology When should Consulting Provider be notified: Now 11/30/16 11:56 Consult to Dietitian [CONS] Routine Reason for Dietitian: Other Discharging clinician: Behzad Kirby DO
== END 2016-12-01 13:45 | disposition home or self-care (01) ==
LOC: N.ED 07:35 → N.EDINP 07:35 → N.TELES 10:41
PROVIDERS: ADMIT Family Medicine; ATTEND Family Medicine